=== PATIENT | female | born 1945 | race Caucasian/White ===

== ENCOUNTER → 2022-03-21 10:13 | Outpatient (BNVA) | payer MEDICARE, MEDICAID, SELFPAY | PROVIDERS: PCP Family Medicine; Referring Provider Registered Nurse; Visit Provider Student in an Organized Health Care Education/Training Program | DX: M16.12 Unilateral primary osteoarthritis, left hip (principal); G14 Postpolio syndrome | CPT/HCPCS: 73502; 99204 ==

== ENCOUNTER → 2022-05-04 08:25 | Outpatient (BNVA) | payer MEDICARE, MEDICAID, SELFPAY | PROVIDERS: PCP Family Medicine; Visit Provider Student in an Organized Health Care Education/Training Program | DX: M16.12 Unilateral primary osteoarthritis, left hip (principal); Z71.89 Other specified counseling | CPT/HCPCS: 20610; 77002; 99213; J3301 ==

== ENCOUNTER → 2022-06-29 08:09 | Outpatient (BNVA) | payer MEDICARE, MEDICAID, SELFPAY | PROVIDERS: PCP Family Medicine; Visit Provider Student in an Organized Health Care Education/Training Program | DX: M16.12 Unilateral primary osteoarthritis, left hip (principal) | CPT/HCPCS: 99213 ==

== ENCOUNTER 2022-08-24 17:37 | Emergency (ER) | payer MEDICARE, MEDICAID, SELFPAY ==
[2022-08-24 17:39] VITALS: BP 101/64; PULSE 90; RESP 16; TEMP 37.2; O2SAT 96
--- NOTE | 2022-08-24 18:38 | USR_ITS ---
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 C/O rle pain and edema x 3-4 days. No history of dvt per patient. TECHNIQUE: Imaging protocol: Real-time duplex ultrasound of the right extremity with 2-D goldman scale, color Doppler flow and spectral waveform analysis including responses to compression and other maneuvers (when performed) with image documentation. Limited exam was focused on the right lower extremity veins. COMPARISON: No relevant prior studies available. FINDINGS: Right deep veins: Unremarkable. The common femoral, femoral, proximal profunda femoral and popliteal veins are patent without thrombus. Normal Doppler waveforms. Normal compressibility and/or augmentation response. Right superficial veins: Unremarkable. Saphenofemoral junction is patent without thrombus. Soft tissues: Unremarkable. US/[place] [id number] IMPRESSION: No evidence of deep vein thrombosis.
--- NOTE | 2022-08-24 18:40 | ED_ITS ---
HPI - Extremity Problem General: Chief complaint: Extremity Problem,Nontraumatic Stated complaint: poss blood clot sent from [facility] Time Seen by Provider: 08/24/22 18:20 Source: patient Mode of arrival: ambulatory Limitations: no limitations History of Present Illness: This patient was referred to the emergency department from [facility] because of some right calf pain and concerned that the might represent a DVT. The patient has no prior history of DVT, known injury etc. She does take Eliquis for stroke risk reduction because of chronic atrial fibrillation. She also has a history of polio contracted as a young child which has left her right leg weaker and less developed and for which she wears an orthotic. Denies any other joint pain, swelling etc. She states she is in her normal state of health otherwise without any chest pain fever shortness of breath etc. Location: right and lower extremity Radiation: distal Associated symptoms: Deny chest pain or fever(s) Review of Systems Const: Denies: fever(s) or chills Card: Denies: chest pain, palpitations, syncope, pre-syncope or dyspnea on exertion Resp: Denies: dyspnea, productive cough or non-productive cough GI: Denies: nausea, vomiting or diarrhea Musc: Reports: extremity pain; Denies: neck pain or back pain Neuro: Denies: numbness in extremities Dheeraj/Lymph: Reports: easy bruising PFS ED PFSH: Medical History Degenerative joint disease of left hip Physical Exam Narrative: EXAM NARRATIVE: She appears to be in no acute distress. She is alert and cooperative. Const: COMMON NORMALS: no acute distress, patient oriented x3, healthy appearing and alert GENERAL APPEARANCE: cooperative and comfortable NUTRITIONAL APPEARANCE: overweight HENMT: COMMON NORMALS: normocephalic, Normal nasal mucous membranes and turbinates present and moist oral mucous membranes HEAD & SCALP: normocephalic NOSE: Normal nasal mucous membranes and turbinates present Eye: COMMON NORMALS: Equal, round and reactive pupils present, EOMs intact bilaterally and conjunctivae normal CONJUNCTIVA: Yes conjunctivae normal PUPIL: Yes Equal, round and reactive pupils present Neck/C-Spine: COMMON NORMALS: full ROM and no lymphadenopathy Resp: COMMON NORMALS: normal respiratory effort, No use of accessory muscles and clear to auscultation bilaterally AUSCULTATION: clear to auscultation bilaterally Cardio: COMMON NORMALS: regular rate, regular rhythm, No murmurs present (Cardio) and Peripheral pulses 2+ throughout RATE: regular rate RHYTHM: regular rhythm PERIPHERAL PULSES: Peripheral pulses 2+ throughout : COMMON NORMALS: Yes no CVA tenderness BLADDER/KIDNEY EXAM: Yes no CVA tenderness Back/Pelvis: COMMON NORMALS: no CVA tenderness, no thoracic nor lumbar tenderness and thoraco-lumbar ROM normal Extremity: COMMON NORMALS: capillary refill normal and no pedal edema NARRATIVE EXTREMITY EXAM: Examination of lower extremities reveal of right lower extremity which has smaller muscular and calf development in the of the left. She has some mild tenderness at the distal calf at the junction of where the Achilles tendon and the belly of the gastroc muscle have their aponeurosis. There is no defect noted with palpation. She has limited motion to dorsiflexion and plantarflexion due to her past polio. There is no evidence of skin rash proximal lymphangitis or proximal lymphadenopathy. Passive range of motion at the knee joint ankle joint are relatively normal. There is no joint effusions noted. There is no ecchymosis noted. She does have some slight smooth numbness to the skin of the right heel as well as the base of the right great toe. However good capillary refill is present. There is no skin breakdown, lesions etc. Neuro: COMMON NORMALS: patient oriented x3, moves all extremities and no sensory deficits noted SENSORIUM/ORIENTATION: Yes alert Psych: COMMON NORMALS: mental status grossly normal Skin: COMMON NORMALS: no rashes or lesions noted, no wounds, turgor normal and no petechiae GENERAL SKIN EXAM: no rashes or lesions noted and turgor normal Course Vital Signs: Vital signs: Vital Signs Temperature 98.9 F 08/24/22 17:39 Pulse Rate 90 08/24/22 17:39 Respiratory Rate 16 08/24/22 17:39 Blood Pressure 101/64 08/24/22 17:39 Pulse Oximetry 96 08/24/22 17:39 Oxygen Delivery Me thod Room Air 08/24/22 17:39 MDM - Extremity (Nontraumatic) Medical Decision Making This patient was referred to the emergency department because of calf pain and the need to rule out a DVT. The patient had no prior history of deep venous thrombosis and has a history of atrial fibrillation was on Eliquis for stroke risk reduction for that condition. 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 She had no history of recent injury. She does wear orthotic which includes a compression strap across her distal calf and lower leg. She again had no injury history recently. Clinical examination revealed no findings to suggest infection, joint effusion, history to suggest fracture or other bony injury. A venous Doppler was obtained which was reassuring and that had no findings to suggest deep venous thrombosis or any other pathologic condition that is frequently noted on ultrasound such as a Tristan's cyst, lymph node enlargement etc. I put presented results to the patient regarding the lack of findings to suggest deep venous thrombosis and I did not feel that there was any other evidence at this time to suggest other ongoing worrisome or emergent medical condition. My feeling is that likely she is developed some soreness due to her orthotic although she was somewhat skeptical of this premise however I reassured her that I do not have anything otherwise at this time to suggest a worrisome condition. I suggested watchful waiting with close follow-up should she develop any changes such as swelling, redness, shortness of breath etc. that might suggest other conditions. Stable at this time to be discharged to outpatient follow-up. Lab Data I reviewed the patient's lab results. Radiology Impressions Venous Duplex 08/24/22 18:38 IMPRESSION: No evidence of deep vein thrombosis. Discharge Plan Discharge Patient Disposition: Home Clinical Impression: Pain of right calf Condition: Stable Prescriptions: No Action methylprednisolone acetate [Depo-Medrol] 80 mg/mL suspension 80 mg intra-articular ONCE Qty: 1 0RF metformin 500 mg tablet 500 mg PO BID paroxetine HCl 10 mg tablet 10 mg PO DAILY lisinopril-hydrochlorothiazide 20-25 mg tablet 1 tab PO DAILY metoprolol succinate 25 mg tablet extended release 24 hr 25 mg PO DAILY lovastatin 20 mg tablet 20 mg PO DAILY oxybutynin chloride 5 mg tablet 5 mg PO TID isosorbide dinitrate 5 mg tablet 5 mg PO TID Rx Instructions: allow nitrate-free interval of 12-14 hrs per 24-hr period Victoza 3-Juan 0.6 mg/0.1 mL (18 mg/3 mL) pen injector 1.2 mg SUBCUT DAILY Eliquis 5 mg tablet 5 mg PO BID Discharge Orders: Discharge ED (Routine); Ordered 08/24/22 Ordered By: Austin Mack Referrals: Kishore An [Primary Care Provider] - Discharge Diet: Usual diet Discharge Activity: Increase activity as tolerated Patient Instructions: Opioid Safety, Pain Management Activity Restrictions/Additional Instructions: As we discussed there is no evidence of a blood clot in your right lower extremity. There is no evidence to suggest infection, other injury at this time . Is likely a soft tissue injury related to your brace but certainly if it does not improve, worsens or other symptoms develop return to this emergency department for reevaluation or see your primary care doctor. Coding Level of Care Code ED Logging Assistant for Dk An
--- NOTE | 2022-08-24 19:20 | ED_ITS ---
HPI - Extremity Problem General: Chief complaint: Extremity Problem,Nontraumatic Stated complaint: poss blood clot sent from [facility] Time Seen by Provider: 08/24/22 18:20 Source: patient Mode of arrival: ambulatory Limitations: no limitations History of Present Illness: This patient was referred to the emergency department because of swelling and soreness to her right lower extremity. There was some concern that she might have a DVT. She has a history of having infantile polio and wears an orthotic on the right lower extremity. She states she has minimal spontaneous muscle strength and that extremity has had that status for almost all her life. She primarily uses a wheelchair for mobility. She denies any history of thromboembolic events. She does take Eliquis for atrial fibrillation. She denies any known injury although this is the leg that she wears her orthotic on most days. She denies any fevers or chills or other constitutional complaints such as shortness of breath, chest pain etc. Associated symptoms: Deny chest pain, fever(s) or rash Review of Systems Const: Denies: fever(s) or chills ENMT: Denies: odynophagia, nasal discharge or nasal congestion Card: Denies: chest pain, palpitations, irregular heart rhythm, syncope, pre- syncope or dyspnea on exertion Resp: Denies: dyspnea, productive cough or non-productive cough GI: Denies: abdominal pain, nausea, vomiting or diarrhea : Denies: flank pain, difficulty voiding or dysuria Musc: Reports: extremity swelling; Denies: neck pain or back pain Skin/Breast: Denies: rash Neuro: Denies: headache(s) or numbness in extremities Dheeraj/Lymph: Reports: easy bruising [facility] ED PFSH: Medical History Degenerative joint disease of left hip Physical Exam Narrative: EXAM NARRATIVE: She appears to be in no acute distress answers questions in a goal-directed fashion. Const: COMMON NORMALS: no acute distress, healthy appearing and alert GENERAL APPEARANCE: cooperative and comfortable NUTRITIONAL APPEARANCE: overweight HENMT: COMMON NORMALS: normocephalic, Normal nasal mucous membranes and turbinates present and moist oral mucous membranes HEAD & SCALP: normocephalic NOSE: Normal nasal mucous membranes and turbinates present Eye: COMMON NORMALS: Equal, round and reactive pupils present, EOMs intact bilaterally and conjunctivae normal CONJUNCTIVA: Yes conjunctivae normal PUPIL: Yes Equal, round and reactive pupils present Neck/C-Spine: COMMON NORMALS: full ROM, no lymphadenopathy, supple and no JVD Chest: COMMONS NORMALS: normal inspection of the chest Resp: COMMON NORMALS: normal respiratory effort, No use of accessory muscles and clear to auscultation bilaterally EFFORT & INSPECTION: Yes able to speak in complete sentences AUSCULTATION: clear to auscultation bilaterally Cardio: COMMON NORMALS: no JVD, regular rate, regular rhythm and Peripheral pulses 2+ throughout RATE: regular rate RHYTHM: regular rhythm PERIPHERAL PULSES: Peripheral pulses 2+ throughout : COMMON NORMALS: Yes no CVA tenderness BLADDER/KIDNEY EXAM: Yes no CVA tenderness Back/Pelvis: COMMON NORMALS: no CVA tenderness, thoracic and lumbar spine normal to inspection and thoraco-lumbar ROM normal Extremity: COMMON NORMALS: normal to inspection NARRATIVE EXTREMITY EXAM: Examination with attention to her lower extremities reveal a shortened and atrophied right lower extremity. She has some tenderness to palpation of the soft tissue of the calf. There is no erythema. There is no lymphangitis or lymphadenopathy. Neuro: COMMON NORMALS: moves all extremities and no sensory deficits noted SENSORIUM/ORIENTATION: Yes alert CRANIAL NERVES: Yes CN normal except as noted Psych: COMMON NORMALS: mental status grossly normal Skin: COMMON NORMALS: no rashes or lesions noted, no wounds and turgor normal GENERAL SKIN EXAM: no rashes or lesions noted and turgor normal Course Vital Signs: Vital signs: Vital Signs Temperature 98.9 F 08/24/22 17:39 Pulse Rate 90 08/24/22 17:39 Respiratory Rate 16 08/24/22 17:39 Blood Pressure 101/64 08/24/22 17:39 Pulse Oximetry 96 08/24/22 17:39 Oxygen Delivery Me thod Room Air 08/24/22 17:39 Discharge Plan Discharge Condition: Stable Prescriptions: No Action methylprednisolone acetate [Depo-Medrol] 80 mg/mL suspension 80 mg intra-articular ONCE Qty: 1 0RF metformin 500 mg tablet 500 mg PO BID paroxetine HCl 10 mg tablet 10 mg PO DAILY lisinopril-hydrochlorothiazide 20-25 mg tablet 1 tab PO DAILY metoprolol succinate 25 mg tablet extended release 24 hr 25 mg PO DAILY lovastatin 20 mg tablet 20 mg PO DAILY oxybutynin chloride 5 mg tablet 5 mg PO TID isosorbide dinitrate 5 mg tablet 5 mg PO TID Rx Instructions: allow nitrate-free interval of 12-14 hrs per 24-hr period Victoza 3-Juan 0.6 mg/0.1 mL (18 mg/3 mL) pen injector 1.2 mg SUBCUT DAILY Eliquis 5 mg tablet 5 mg PO BID Referrals: Kishore An [Primary Care Provider] - Coding Level of Care Code ED Microbiology Teacher for Aryg Juve
== END 2022-08-24 21:11 | disposition home or self-care (01) ==
PROVIDERS: Emergency Provider Emergency Medicine; PCP Family Medicine
DX: M79.604 Pain in right leg (principal); Z79.01 Long term (current) use of anticoagulants; Z79.84 Long term (current) use of oral hypoglycemic drugs
CPT/HCPCS: 93971; 99284

== ENCOUNTER → 2023-02-16 07:38 | Outpatient (BNVA) | payer MEDICARE, MEDICAID, SELFPAY | PROVIDERS: PCP Family Medicine; Visit Provider Student in an Organized Health Care Education/Training Program | DX: M16.12 Unilateral primary osteoarthritis, left hip (principal); E11.9 Type 2 diabetes mellitus without complications; L84 Corns and callosities; M21.541 Acquired clubfoot, right foot; A80.9 Acute poliomyelitis, unspecified; Z79.84 Long term (current) use of oral hypoglycemic drugs | CPT/HCPCS: 11055; 20610; 77002; 99203; 99213; J3301 ==

== ENCOUNTER → 2023-04-27 10:11 | Outpatient (BNVA) | payer MEDICARE, MEDICAID, SELFPAY | PROVIDERS: PCP Family Medicine; Visit Provider Physician Assistant | DX: M75.42 Impingement syndrome of left shoulder | CPT/HCPCS: 20610; 73030; 99213; J3301 ==

== ENCOUNTER → 2023-09-04 09:11 | Outpatient (BNVA) | payer MEDICARE, MEDICAID, SELFPAY | PROVIDERS: PCP Family Medicine; Visit Provider Physician Assistant | DX: M16.12 Unilateral primary osteoarthritis, left hip (principal); M75.42 Impingement syndrome of left shoulder | CPT/HCPCS: 20610; 73502; 99213; J3301 ==

== ENCOUNTER → 2023-11-09 08:23 | Outpatient (BNVA) | payer MEDICARE, MEDICAID, SELFPAY | PROVIDERS: PCP Family Medicine; Visit Provider Student in an Organized Health Care Education/Training Program | DX: M16.12 Unilateral primary osteoarthritis, left hip (principal) | CPT/HCPCS: 20610; 77002; 99213; J3301 ==

== ENCOUNTER → 2024-02-15 07:53 | Outpatient (BNVA) | payer MEDICARE, MEDICAID, SELFPAY | PROVIDERS: PCP Family Medicine; Visit Provider Student in an Organized Health Care Education/Training Program | DX: M16.12 Unilateral primary osteoarthritis, left hip (principal) | CPT/HCPCS: 20610; 77002; J3301 ==

== ENCOUNTER → 2024-12-19 09:17 | Outpatient (BNVA) | payer MEDICARE, MEDICAID, SELFPAY | PROVIDERS: PCP Family Medicine; Visit Provider Student in an Organized Health Care Education/Training Program | DX: M16.12 Unilateral primary osteoarthritis, left hip (principal); Z71.89 Other specified counseling | CPT/HCPCS: 20610; 77002; J3301; J9999 ==